=== PATIENT | female | born 1980 | race Two or more races ===

== ENCOUNTER 2023-10-09 11:11 | Emergency (ER) | payer OTHER ==
[~2023-10-09] VITALS: Ht 167.6 cm; Wt 145.2 kg
[2023-10-09 11:18] VITALS: BP 161/89; TEMP 98.2; O2SAT 100
[2023-10-09 11:22] VITALS: PULSE 111
[2023-10-09] MEDS ORDERED: HUM100IN SQ (12:09)
== END 2023-10-09 12:40 | disposition home or self-care (01) ==
LOC: ER 11:11
DX: E11.65 Type 2 diabetes mellitus with hyperglycemia (principal); J45.909 Unspecified asthma, uncomplicated; Z76.0 Encounter for issue of repeat prescription
CPT/HCPCS: 82962; 99282; 99283